=== PATIENT | female | born 1995 | race American Indian/Alaskan Native ===

== ENCOUNTER 2020-11-30 03:49 | Emergency (ER) | payer MEDICAID ==
[2020-11-30 04:16] VITALS: BP 110/67
--- NOTE | 2020-11-30 04:55 | XRay Report ---
CHEST 2 VIEWS INDICATION / CLINICAL INFORMATION: Left chestpain. COMPARISON: None available. FINDINGS: SUPPORT DEVICES: None. HEART / MEDIASTINUM: No significant abnormality. LUNGS / PLEURA: No significant pulmonary or pleural abnormality. No pneumothorax. ADDITIONAL FINDINGS: No significant additional findings. IMPRESSION: 1. No acute findings. Signer Name: Tiffanie Jasso MD Signed: 11/30/2020 4:50 AM Workstation Name: [id number]
[2020-11-30] MEDS ORDERED: ACETAMINOPHEN W/CODEINE 300-30 MG TAB PO ONE (06:17)
[2020-11-30] MEDS ORDERED: IBUPROFEN 800 MG TAB PO ONE (06:17)
--- NOTE | 2020-11-30 06:22 | Emergency Department Report ---
ED General Adult HPI - General Chief complaint: Chest Pain Stated complaint: CHEST PAIN Time Seen by Provider: 11/30/20 06:16 Source: patient Mode of arrival: Ambulatory Limitations: No Limitations - History of Present Illness Initial comments: Patient is a 25-year-old female who presents for left lateral anterior chest wall pain x2 days. Patient describes pain as 7/10 sharp exacerbated by deep inspiration. Pain is relieved by nothing tried. Patient is a [id number] smoker. There is been no fever, chills, nausea or vomiting. Patient is tolerating p.o. intake without symptoms. Patient has no cardiac history no asthma or bronchitis. Patient denies fall injury or trauma. PT advises he works in [place] and is Covid tested 3 times per week negative 2 days ago. - Related Data Previous Rx's Medication Instructions Recorded Last Taken Type Naproxen 500 mg PO BID PRN #30 tablet 11/30/20 Unknown Rx Allergies Allergy/AdvReac Type Severity Reaction Status Date / Time No Known Allergies Allergy Unverified 11/30/20 04:19 ED Review of Systems ROS: Stated complaint: CHEST PAIN Other details as noted in HPI Constitutional: denies: chills, fever Eyes: denies: eye pain, eye discharge, vision change ENT: denies: ear pain, throat pain Respiratory: denies: cough, shortness of breath, wheezing Cardiovascular: chest pain Endocrine: no symptoms reported Gastrointestinal: denies: abdominal pain, nausea, diarrhea Genitourinary: denies: urgency, dysuria, discharge Musculoskeletal: back pain Skin: denies: rash, lesions Neurological: denies: headache, weakness, paresthesias Psychiatric: denies: anxiety, depression Hematological/Lymphatic: denies: easy bleeding, easy bruising ED Past Medical Hx - Past Medical History Previous Medical History?: No - Surgical History Past Surgical History?: No - Social History Smoking Status: Current Every Day Smoker Substance Use Type: None - Medications Home Medications: Home Medications Medication Instructions Recorded Confirmed Last Taken Type Naproxen 500 mg PO BID PRN #30 tablet 11/30/20 Unknown Rx ED Physical Exam - General Limitations: No Limitations General appearance: alert, in no apparent distress - Head Head exam: Present: atraumatic, normocephalic - Eye Eye exam: Present: normal appearance, EOMI Pupils: Present: normal accommodation - ENT ENT exam: Present: mucous membranes moist - Neck Neck exam: Present: normal inspection, full ROM. Absent: tenderness - Respiratory Respiratory exam: Present: normal lung sounds bilaterally, chest wall tenderness (left anterior lateral chestwall tenderness to deep palpation no echymosis no stepoff no crepitus). Absent: respiratory distress, wheezes, rales, rhonchi, stridor, prolonged expiratory - Cardiovascular Cardiovascular Exam: Present: regular rate, normal rhythm, normal heart sounds. Absent: systolic murmur, diastolic murmur, rubs, gallop - GI/Abdominal GI/Abdominal exam: Present: soft, normal bowel sounds. Absent: distended, tenderness, bruit, hernia - Rectal Rectal exam: Present: deferred - Extremities Exam Extremities exam: Present: normal inspection, full ROM, normal capillary refill. Absent: tenderness - Back Exam Back exam: Present: normal inspection, full ROM. Absent: CVA tenderness (R), CVA tenderness (L) - Neurological Exam Neurological exam: Present: alert, oriented X3, normal gait - Psychiatric Psychiatric exam: Present: normal affect, normal mood - Skin Skin exam: Present: warm, dry, intact, normal color. Absent: rash ED Course Vital Signs 11/30/20 04:11 Temperature 98.0 F Pulse Rate 72 Respiratory 20 Rate Blood Pressure 110/67 O2 Sat by Pulse 98 Oximetry ED Medical Decision Making - EKG Data EKG shows normal: sinus rhythm, axis, intervals, QRS complexes, ST-T waves Rate: normal - EKG Data Interpretation: normal EKG (NSR No ST Elevated NM, interp by ed attending ) - Radiology Data Radiology results: report reviewed, image reviewed CHEST 2 VIEWS INDICATION / CLINICAL INFORMATION: Left chestpain. COMPARISON: None available. FINDINGS: SUPPORT DEVICES: None. HEART / MEDIASTINUM: No significant abnormality. LUNGS / PLEURA: No significant pulmonary or pleural abnormality. No pneumothorax. ADDITIONAL FINDINGS: No significant additional findings. IMPRESSION: 1. No acute findings. Signer Name: Tiffanie Jasso MD Signed: 11/30/2020 4:50 AM Workstation Name: [id number] Transcribed By: Dictated By: Tiffanie Jasso MD Electronically Authenticated By: Tiffanie Jasso MD Signed Date/Time: 11/30/20449 DD/ 9 TD/TT: - Medical Decision Making Patient appears well well-nourished well-hydrated with no acute distress EKG is normal chest x-ray is normal no infiltrates no opacities there is no cough fever or chills. There is no wheezing no stridor. There is no edema no PND no other exacerbating or relieving factors. Patient denies history of GERD. Pain is reproducible to palpation to left lateral anterior chest wall. Plan NSAIDs as needed pain, follow-up with primary care doctor in 2 to 3 days. Critical care attestation.: If time is entered above; I have spent that time in minutes in the direct care of this critically ill patient, excluding procedure time. ED Disposition Clinical Impression: Chest wall pain Disposition: DC-01 TO HOME OR SELFCARE Is pt being admited?: No Does the pt Need Aspirin: No Condition: Stable Instructions: Nonspecific Chest Pain, Adult Additional Instructions: take medications as prescribed follow up with your doctor in 2-3 days, return to emergency if symptoms worsen. Prescriptions: Naproxen 500 mg PO BID PRN #30 tablet PRN Reason: pain Referrals: ROHAN SHEEHAN MD [Staff Physician] - 3-5 Days Forms: Work/School Release Form(ED) Time of Disposition: 06:25
--- NOTE | 2020-12-06 11:13 | Electrocardiograph Report ---
[facility] Test Date: 2020-11-30 Test Time: 04:02:03 Pat Name: SAVANA TORRES Department: Room: Gender: F Mail Manager: JANET : 1995 Requested By: BLADE TRAN Order Number: [id number] Reading MD: Minna Hyatt Measurements Intervals Cooks Rate: 73 P: 55 DE: 202 QRS: 39 QRSD: 77 T: 28 QT: 380 QTc: 421 Interpretive Statements Sinus rhythm Borderline prolonged DE interval No previous ECG available for comparison Electronically Signed On 12-06-2020 11:13:00 EDT by Minna Hyatt
== END 2020-11-30 06:37 | disposition home or self-care (01) ==
LOC: ED 03:49
DX: R07.89 Other chest pain (principal); F17.200 Nicotine dependence, unspecified, uncomplicated; Z79.899 Other long term (current) drug therapy
CPT/HCPCS: 71046; 93005